=== PATIENT | male | born 1985 | race Caucasian/White ===

== ENCOUNTER 2018-05-28 21:05 | Emergency (ER) | payer BC ==
[~2018-05-28 21:05] MED LIST: BUPR1 PO; HYDACE5 PO; LEVFLO500 PO; METH40; METH40 PO; OXYC10ER; OXYC30 PO; OXYC5 PO; PROM25 PO; RXLORA1 PO; SUBUTEX; [UNRECOGNIZED DRUG - OTHER]
== END 2018-05-28 21:06 | disposition left against medical advice (07) ==
LOC: ER 21:05
DX: Z53.21 Procedure and treatment not carried out due to patient leaving prior to being seen by health care provider (principal)

== ENCOUNTER 2025-09-04 10:54 | Emergency (ER) | payer OTHER, BC ==
[~2025-09-04] VITALS: Ht 175.3 cm; Wt 95.2 kg
[~2025-09-04 10:54] MED LIST changes: +BUPRENORPHINE HC8 MG SL; +Celexa20 MG PO; +DEPO-TESTO200 MG/18 IM; +ESCI10 PO; +FOLI1 PO; +HYDHCL25 PO; +MIRT15 PO; +NICOTINE GUM2 M1 PO
[2025-09-04] MEDS ORDERED: Buprenorphine HCL/Naloxone HCL 8MG-2MG Tab SL ONE (12:50)
[2025-09-04] MEDS ORDERED: IBUP800 PO (14:12)
[2025-09-04] MEDS ORDERED: ACET500 PO (14:12)
[2025-09-04 14:26] VITALS: BP 122/99
== END 2025-09-04 14:25 | disposition home or self-care (01) ==
LOC: ER 10:54
DX: S02.842A Fracture of lateral orbital wall, left side, initial encounter for closed fracture (principal); S02.40DA Maxillary fracture, left side, initial encounter for closed fracture; S01.112A Laceration without foreign body of left eyelid and periocular area, initial encounter; Z88.0 Allergy status to penicillin; Z88.2 Allergy status to sulfonamides; Z79.899 Other long term (current) drug therapy; F17.290 Nicotine dependence, other tobacco product, uncomplicated; R00.0 Tachycardia, unspecified; V87.8XXA Person injured in other specified noncollision transport accidents involving motor vehicle (traffic), initial encounter
CPT/HCPCS: 70450; 70486; 99284-25; A9270